=== PATIENT | female | born 1950 ===

== ENCOUNTER → 2023-06-03 | Outpatient (CLI) | payer SELFPAY ==
[2023-06-07 12:48] LABS: Stool Occult Bld Immuno 1 Negative (NEGATIVE); Stool Occult Bld Immuno 2 Negative (NEGATIVE); Stool Occult Bld Immuno 3 Negative (NEGATIVE)
== END | disposition home or self-care (01) ==
LOC: LAB SHORT 10:43
PROVIDERS: Registered Nurse Oncology
DX: D50.9 Iron deficiency anemia, unspecified (principal)
CPT/HCPCS: 82274

== ENCOUNTER → 2023-09-08 | Outpatient (CLI) | payer MEDICARE ==
[2023-09-13 23:12] LABS: CALPROTECTIN,FECAL 302 ug/g (<=49)
== END ==
LOC: LAB SHORT 13:39 → LAB 13:39
PROVIDERS: Nurse Practitioner Family
DX: D50.9 Iron deficiency anemia, unspecified (principal); R15.0 Incomplete defecation
CPT/HCPCS: 83993

== ENCOUNTER 2023-09-22 08:25 | Day surgery (SDC) | payer MEDICARE ==
[~2023-09-22] VITALS: Ht 162.6 cm; Wt 68.8 kg
[~2023-09-22 08:25] MED LIST: Lactated Ringer's 1,000 ML IV ONE; propofoL 50 ML IV ONE
[2023-09-22] MEDS ORDERED: Lactated Ringer's 1,000 ML IV ONE (09:44)
[2023-09-22] MEDS ORDERED: Lidocaine HCl 2% Jelly 120MG/6ML SYR (20MG PER ML) ONE (10:33)
[2023-09-22] MEDS ORDERED: propofoL 50 ML IV ONE (10:34)
== END 2023-09-22 12:00 | disposition home or self-care (01) ==
LOC: ORSCSDS 08:25
PROVIDERS: Internal Medicine Gastroenterology
PROC: 0DBL8ZX Excision of Transverse Colon, Via Natural or Artificial Opening Endoscopic, Diagnostic (ICD-10-PCS; principal; 2023-09-22 09:45)
PROC: 0DJ08ZZ Inspection of Upper Intestinal Tract, Via Natural or Artificial Opening Endoscopic (ICD-10-PCS; principal; 2023-09-22 09:45)
PROC: 0DBP8ZX Excision of Rectum, Via Natural or Artificial Opening Endoscopic, Diagnostic (ICD-10-PCS; principal; 2023-09-22 09:45)
DX: D50.9 Iron deficiency anemia, unspecified (principal); C18.4 Malignant neoplasm of transverse colon; A63.0 Anogenital (venereal) warts; K63.5 Polyp of colon; R15.0 Incomplete defecation; I10 Essential (primary) hypertension; K21.9 Gastro-esophageal reflux disease without esophagitis; R49.0 Dysphonia; Z85.3 Personal history of malignant neoplasm of breast
CPT/HCPCS: 88305; A9270; J2704; J7120